=== PATIENT | male | born 1975 | race Caucasian/White ===

== ENCOUNTER 2019-09-25 10:31 | Emergency (ER) | payer OTHER ==
[~2019-09-25] VITALS: Ht 175.3 cm; Wt 97.5 kg
[2019-09-25 11:05] LABS: ABSOLUTE NEUTROPHILS 6.3 thou/uL (1.4-8.2); BASOPHILS 0.8 % (0.0-2.0); EOSINOPHILS 3.8 % (0.0-3.0); HEMATOCRIT 42.6 % (42.0-52.0); HEMOGLOBIN 14.1 gm/dL (14.0-18.0); LYMPHOCYTES 22.4 % (24.0-44.0); MCV 84.8 fL (80.0-100.0); MONOCYTES 6.3 % (1.0-8.0); PLATELET COUNT 407 thou/uL (150-400); POLYS 66.7 % (36.0-66.0); RBC 5.03 mil/uL (4.50-6.00); RDW 14.3 % (10.5-14.5); WBC 9.5 thou/uL (4.0-11.0)
[2019-09-25 11:31] LABS: ALBUMIN 3.8 g/dL (3.4-5.0); BUN 10 mg/dL (7-18); CALCIUM 10.1 mg/dL (8.5-10.1); CO2 27 mmol/L (21-32); DIRECT BILIRUBIN < 0.1 mg/dL (<0.1-0.2); GLUCOSE 107 mg/dL (74-106); LIPASE 146 U/L (73-393); SGOT 40 U/L (15-37); SGPT 70 U/L (30-65); TOTAL BILIRUBIN 0.3 mg/dL (<0.1-1.0); TOTAL PROTEIN 8.5 g/dL (6.4-8.2)
[2019-09-25 11:46] LABS: ANION GAP 10 mmol/L (7-16); CHLORIDE 101 mmol/L (98-107); POTASSIUM 4.3 mmol/L (3.5-5.1); SODIUM 138 mmol/L (136-145)
[2019-09-25 13:14] LABS: URINE BILIRUBIN NEGATIVE (Negative); URINE BLOOD NEGATIVE (Negative); URINE CLARITY CLEAR; URINE COLOR YELLOW; URINE GLUCOSE-RANDOM* NEGATIVE (Negative); URINE KETONES NEGATIVE (Negative); URINE LEUKOCYTES-REFLEX NEGATIVE (Negative); URINE NITRITE-REFLEX NEGATIVE (Negative); URINE PROTEIN (DIPSTICK) NEGATIVE (Negative); URINE SPECIFIC GRAVITY <= 1.005 (1.005-1.035); URINE UROBILINOGEN 0.2 E.U./dl (0.2-1.0)
[2019-09-25] MEDS ORDERED: NORCO 5-325 TA1 EAC1 PO (14:01)
[2019-09-25] MEDS ORDERED: BENTYL 20 MG TA20 M1 PO (14:01)
[2019-09-25] MEDS ORDERED: CIPROFLOXACIN500 M1 PO (14:01)
[2019-09-25] MEDS ORDERED: FLAGYL500 M1 PO (14:01)
[2019-09-25 14:35] VITALS: BP 131/93
== END 2019-09-25 14:50 | disposition home or self-care (01) ==
LOC: ER 10:31
PROVIDERS: Emergency Medicine
DX: K57.92 Diverticulitis of intestine, part unspecified, without perforation or abscess without bleeding (principal)

== ENCOUNTER → 2020-12-25 | Outpatient (CLI) | payer OTHER ==
[~2020-12-25] MED LIST: BENTYL 20 MG TA20 M1 PO; CIPROFLOXACIN500 M1 PO; FLAGYL500 M1 PO; NORCO 5-325 TA1 EAC1 PO
== END ==
LOC: RAD 10:31
PROVIDERS: ATTEND Family Medicine
DX: M25.521 Pain in right elbow (principal)